=== PATIENT | female | born 1975 | race Two or more races ===

== ENCOUNTER 2018-09-20 14:00 | Emergency (ER) | payer OTHER, BC ==
[~2018-09-20] VITALS: Ht 149.9 cm; Wt 88.9 kg
[2018-09-20 14:03] VITALS: BP 156/86
== END 2018-09-20 15:42 | disposition home or self-care (01) ==
LOC: ED 14:49
DX: L98.499 Non-pressure chronic ulcer of skin of other sites with unspecified severity (principal); R51 Headache; F41.1 Generalized anxiety disorder; E11.9 Type 2 diabetes mellitus without complications
CPT/HCPCS: 70450; 99284